=== PATIENT | female | born 1985 | race American Indian/Alaskan Native ===

== ENCOUNTER 2016-10-05 05:30 | Emergency (ER) | payer MEDICAID, OTHER ==
[2016-10-05 07:06] LABS: Basophils % (Auto) 0.7 % (0.0-1.8); Eosinophils % (Auto) 2.2 % (0.0-4.3); Hematocrit 37.1 % (30.3-42.9); Hemoglobin 12.5 gm/dl (10.1-14.3); Mean Corpuscular HGB Conc 34 % (30-34); Mean Corpuscular Volume 76 fl (79-97); Platelet Count 394 K/mm3 (140-440); Red Blood Count 4.87 M/mm3 (3.65-5.03); Red Cell Distribution Width 16.2 % (13.2-15.2); White Blood Count 12.3 K/mm3 (4.5-11.0)
[2016-10-05 07:17] LABS: Anion Gap 18 mmol/L; Blood Urea Nitrogen 11 mg/dL (7-17); Calcium 8.2 mg/dL (8.4-10.2); Carbon Dioxide 22 mmol/L (22-30); Chloride 101.2 mmol/L (98-107); Glucose 222 mg/dL (65-100); Potassium 4.4 mmol/L (3.6-5.0); Sodium 137 mmol/L (137-145)
[2016-10-05 07:18] LABS: Mean Corpuscular Hemoglobin 26 pg (28-32)
[2016-10-05 08:07] LABS: Bilirubin,Urine NEG (Negative); Blood,Urine SM (Negative); Ketones,Urine NEG (Negative); Leukocyte Esterase,Urine NEG (Negative); Mucus,Urine FEW /HPF; Nitrite,Urine NEG (Negative); Protein,Urine <15 mg/dL mg/dL (Negative); Urobilinogen,Urine < 2.0 mg/dL (<2.0)
--- NOTE | 2016-10-05 08:42 | XRay Report ---
ROUTINE CHEST, TWO VIEWS: HISTORY: Shortness of breath. The trachea, heart, mediastinal contour, lung sweeney and bony thorax are unremarkable. Minor linear scarring in the lingula is noted. IMPRESSION: Unremarkable chest x-ray.
[2016-10-05] MEDS ORDERED: TORADOL IV ONE (10:07)
--- NOTE | 2016-10-05 10:12 | Emergency Department Report ---
ED Shortness of Breath HPI - General Chief Complaint: Dyspnea/Respdistress Stated Complaint: CHEST PAIN/COUGH/VOMITING/SOB Time Seen by Provider: 10/05/16 09:41 Source: patient Mode of arrival: Ambulatory Limitations: No Limitations - History of Present Illness Initial Comments: 31-year-old female with a history of recent vaginal delivery 4 months ago here with complaints of shortness of breath and bilateral leg swelling. She complains of pleuritic type chest pain worse with deep breath. She is short of breath with exertion. She is had a difficult time with multiple stressful events recently and is at a long-term. She denies fevers chills nausea. She did vomit today. She feels like she had a panic attack. She has no history of blood clots. There is no coronary history in her family. MD Complaint: shortness of breath -: Gradual Severity: mild Quality: sharp, stabbing Consistency: intermittent Improves With: rest Worsens With: movement, coughing, inspiration Associated Symptoms: chest pain, pain with inspiration, cough Treatments Prior to Arrival: none - Related Data Home Medications Medication Instructions Recorded Confirmed Last Taken Aspirin [Aspirin BABY CHEW TAB] 81 mg PO QDAY 10/05/16 10/05/16 Unknown Insulin Glulisine [Apidra] 10 units SQ QID 10/05/16 10/05/16 Unknown Insulin NPH Human Isophane 10 units SQ TID 10/05/16 10/05/16 Unknown [HumuLIN N] Insulin Regular, Human [HumuLIN R] 10 units SQ QID 10/05/16 10/05/16 Unknown Maili Carbonate 300 mg PO BID 10/05/16 10/05/16 Unknown clonazePAM 1 mg PO BID 10/05/16 10/05/16 Unknown diphenhydrAMINE [Benadryl CAP] 25 mg PO Q6H PRN 10/05/16 10/05/16 Unknown Previous Rx's Medication Instructions Recorded Last Taken Type Ibuprofen [Motrin 600 MG tab] 600 mg PO Q8H PRN #30 tablet 10/05/16 Unknown Rx amLODIPine [Norvasc] 5 mg PO DAILY #30 tab 10/05/16 Unknown Rx guaiFENesin [Diabetic Tussin Ex] 200 mg PO Q8HR PRN #240 liquid 10/05/16 Unknown Rx Allergies Allergy/AdvReac Type Severity Reaction Status Date / Time No Known Allergies Allergy Verified 10/05/16 11:46 ED Review of Systems ROS: Stated complaint: CHEST PAIN/COUGH/VOMITING/SOB Other details as noted in HPI Comment: All other systems reviewed and negative Constitutional: denies: chills, fever Eyes: denies: eye pain, eye discharge, vision change ENT: denies: ear pain, throat pain Respiratory: denies: cough, shortness of breath, wheezing Cardiovascular: chest pain. denies: palpitations Endocrine: no symptoms reported Gastrointestinal: denies: abdominal pain, nausea, diarrhea Genitourinary: denies: urgency, dysuria, discharge Musculoskeletal: denies: back pain, joint swelling, arthralgia Skin: denies: rash, lesions Neurological: denies: headache, weakness, paresthesias Psychiatric: denies: anxiety, depression Hematological/Lymphatic: denies: easy bleeding, easy bruising ED Past Medical Hx - Past Medical History Previous Medical History?: Yes Hx Hypertension: Yes Hx Psychiatric Treatment: Yes (Anxiety, Manic depression) Hx Dementia: (TYPE 1) Additional medical history: MRSA inside nose - Surgical History Past Surgical History?: Yes - Family History Family history: hypertension - Social History Smoking Status: Never Smoker Substance Use Type: None - Medications Home Medications: Home Medications Medication Instructions Recorded Confirmed Last Taken Type Aspirin [Aspirin BABY CHEW TAB] 81 mg PO QDAY 10/05/16 10/05/16 Unknown History Ibuprofen [Motrin 600 MG tab] 600 mg PO Q8H PRN #30 tablet 10/05/16 Unknown Rx Insulin Glulisine [Apidra] 10 units SQ QID 10/05/16 10/05/16 Unknown History Insulin NPH Human Isophane 10 units SQ TID 10/05/16 10/05/16 Unknown History [HumuLIN N] Insulin Regular, Human [HumuLIN R] 10 units SQ QID 10/05/16 10/05/16 Unknown History Maili Carbonate 300 mg PO BID 10/05/16 10/05/16 Unknown History amLODIPine [Norvasc] 5 mg PO DAILY #30 tab 10/05/16 Unknown Rx clonazePAM 1 mg PO BID 10/05/16 10/05/16 Unknown History diphenhydrAMINE [Benadryl CAP] 25 mg PO Q6H PRN 10/05/16 10/05/16 Unknown History guaiFENesin [Diabetic Tussin Ex] 200 mg PO Q8HR PRN #240 liquid 10/05/16 Unknown Rx ED Physical Exam - General Limitations: No Limitations General appearance: alert, in no apparent distress - Head Head exam: Present: atraumatic, normocephalic - Eye Eye exam: Present: normal appearance. Absent: scleral icterus - ENT ENT exam: Present: mucous membranes moist - Neck Neck exam: Present: normal inspection - Respiratory Respiratory exam: Present: normal lung sounds bilaterally. Absent: respiratory distress, wheezes, rales, rhonchi - Cardiovascular Cardiovascular Exam: Present: regular rate, normal rhythm. Absent: systolic murmur, diastolic murmur, rubs, gallop - GI/Abdominal GI/Abdominal exam: Present: soft, normal bowel sounds - Extremities Exam Extremities exam: Present: normal inspection - Back Exam Back exam: Present: normal inspection - Neurological Exam Neurological exam: Present: alert, oriented X3 - Psychiatric Psychiatric exam: Present: normal affect, normal mood - Skin Skin exam: Present: warm, dry, intact, normal color. Absent: rash ED Course Vital Signs 10/05/16 10/05/16 10/05/16 05:37 05:44 09:55 Temperature 98.1 F 98.1 F Pulse Rate 99 H 99 H 96 H Respiratory 18 20 18 Rate Blood Pressure 150/100 Blood Pressure 150/100 153/96 [Right] O2 Sat by Pulse 99 99 100 Oximetry ED Medical Decision Making - Lab Data Result diagrams: 10/05/16 06:48 10/05/16 06:45 Laboratory Results - last 24 hr 10/05/16 10/05/16 10/05/16 06:45 06:48 07:27 WBC 12.3 H RBC 4.87 Hgb 12.5 Hct 37.1 MCV 76 L MCH 26 L MCHC 34 RDW 16.2 H Plt Count 394 Lymph % (Auto) 23.0 Hale % (Auto) 9.6 H Eos % (Auto) 2.2 Baso % (Auto) 0.7 Lymph # 2.8 Hale # 1.2 H Eos # 0.3 Baso # 0.1 Seg Neutrophils % 64.5 Seg Neutrophils # 7.9 H Carbon Dioxide 22 BUN 11 Creatinine 0.5 L Estimated GFR > 60 BUN/Creatinine Ratio 22.00 Glucose 222 H POC Glucose Calcium 8.2 L Troponin T < 0.010 Urine Color Straw Urine Turbidity Clear Urine pH 6.0 Ur Specific [place] 1.008 Urine Protein <15 mg/dl Urine Glucose (UA) 50 Urine Ketones Neg Urine Blood Sm Urine Nitrite Neg Urine Bilirubin Neg Urine Urobilinogen < 2.0 Ur Leukocyte Esterase Neg Urine WBC (Auto) 1.0 Urine RBC (Auto) 3.0 U Epithel Cells (Auto) 1.0 Urine Mucus Few Urine HCG, Qual Negative 10/05/16 09:34 WBC RBC Hgb Hct MCV MCH MCHC RDW Plt Count Lymph % (Auto) Hale % (Auto) Eos % (Auto) Baso % (Auto) Lymph # Hale # Eos # Baso # Seg Neutrophils % Seg Neutrophils # Carbon Dioxide BUN Creatinine Estimated GFR BUN/Creatinine Ratio Glucose POC Glucose 377 H Calcium Troponin T Urine Color Urine Turbidity Urine pH Ur Specific [place] Urine Protein Urine Glucose (UA) Urine Ketones Urine Blood Urine Nitrite Urine Bilirubin Urine Urobilinogen Ur Leukocyte Esterase Urine WBC (Auto) Urine RBC (Auto) U Epithel Cells (Auto) Urine Mucus Urine HCG, Qual - EKG Data -: EKG Interpreted by Me - EKG Data 10/05/16 10:13 EKG sinus 92 normal axis normal intervals and no ST-T wave changes - Medical Decision Making 31-year-old female here with complaint of pleuritic type chest pain. Plan add on d-dimer and ultrasound of the legs. Her baseline labs showed a slightly elevated white blood cell count but otherwise unremarkable. Chest x-ray is unremarkable. D-dimer negative. Patient is low risk for PE. She has a negative DVT study as well. Her blood pressure slightly elevated she states that she's not been able to get her medications from the long-term. I plan to discharge her with NSAIDs and cough medicine in addition to starting her on 5 mg of Norvasc orally. Portions of this chart were dictated with dictation software. There may be dictation errors contained within this note. Critical care attestation.: If time is entered above; I have spent that time in minutes in the direct care of this critically ill patient, excluding procedure time. ED Disposition Clinical Impression: Anxiety, Chest pain Disposition: DC-01 TO HOME OR SELFCARE Is pt being admited?: No Condition: Stable Instructions: Chest Pain (ED) Additional Instructions: Please follow up with her regular doctor for blood pressure check in the next 4- 6 weeks. Prescriptions: amLODIPine [Norvasc] 5 mg PO DAILY #30 tab guaiFENesin [Diabetic Tussin Ex] 200 mg PO Q8HR PRN #240 liquid PRN Reason: Cough Ibuprofen [Motrin 600 MG tab] 600 mg PO Q8H PRN #30 tablet PRN Reason: Pain Referrals: PRIMARY CARE, [Primary Care Provider] - 3-5 Days
[2016-10-05] MEDS ORDERED: ZOFRAN ONE (11:44)
[2016-10-05] MEDS ORDERED: ZOFRAN IV ONE (11:45)
[2016-10-05 12:43] VITALS: BP 140/81
--- NOTE | 2016-10-07 10:33 | Vascular Lab Report ---
LOWER EXTREMITY VENOUS DUPLEX: REASON FOR EXAM: Pain of the lower extremities. COMMENTS ON THE RIGHT: All veins visualized are freely compressible without evidence of internal echogenicity. Flow is spontaneous and phasic throughout. COMMENTS ON THE LEFT: All veins visualized are freely compressible without evidence of internal echogenicity. Flow is spontaneous and phasic throughout. IMPRESSION: No evidence of acute or chronic deep venous thrombosis in either lower extremity.
== END 2016-10-05 12:54 | disposition home or self-care (01) ==
LOC: ED 05:30
DX: F41.9 Anxiety disorder, unspecified (principal); R07.9 Chest pain, unspecified; I10 Essential (primary) hypertension; F32.9 Major depressive disorder, single episode, unspecified; F03.90 Unspecified dementia, unspecified severity, without behavioral disturbance, psychotic disturbance, mood disturbance, and anxiety; Z79.82 Long term (current) use of aspirin
CPT/HCPCS: 36415; 71020; 80048; 81001; 81025; 82962; 84484; 85025; 85379; 93005; 93010; 93970; 96372; 96374; 96375; 99285; J1885; J2405; J1815